=== PATIENT | male | born 1985 | race Two or more races ===

== ENCOUNTER 2018-11-10 09:30 | Outpatient (CLI) | payer OTHER ==
--- NOTE | 2018-11-10 11:44 | Pre-Procedure Note/Attestation ---
Pre-Procedure Note/Attestation Complete Prior to Procedure Planned Procedure: left Procedure Narrative: shoulder arthrogram Indications for Procedure Pre-Operative Diagnosis: shoulder pain Attestation I attest that I discussed the nature of the procedure; its benefits; risks and complications; and alternatives (and the risks and benefits of such alternatives ), prior to the procedure, with the patient (or the patient's legal customer solutions representative). I attest that, if there was a reasonable possibility of needing a blood transfusion, the patient (or the patient's legal customer solutions representative) was given the [facility] standardized written summary, pursuant to the [employer] Blood Safety Act ([place] Health and Safety Code # 1645, as amended). I attest that I re-evaluated the patient just prior to the surgery and that there has been no change in the patient's H&P, except as documented below: Calin Leal MD Nov 10, 2018 11:44
--- NOTE | 2018-11-10 11:56 | Brief Operative Note ---
Immediate Post Operative Note Operative Note Pre-op Diagnosis: shoulder pain Procedure: L shoulder arthrogram Post-op Diagnosis: same as pre-op Findings: consistent w/pre-op dx studies Surgeon: Marta Leal Anesthesia: local Specimen: none Complications: none Condition: stable Fluids: none Implant(s) used?: No Calin Leal MD Nov 10, 2018 11:56
--- NOTE | 2018-11-10 12:05 | Diagnostic Imaging Report ---
Indication: Left shoulder pain, needs gadolinium injection for MRI arthrogram Technique: Informed consent obtained prior to commencement of the procedure. Procedural timeout performed. Sterile prepping and draping. Fluoroscopy used to determine optimal puncture site, using rotator interval approach. Local anesthesia with 1% lidocaine. Under real-time fluoroscopy guidance, 21-gauge spinal needle was advanced to the 10:00 position of the medial humeral head. Small amount of lidocaine injected, confirming easy injection. Small amount of contrast injected, confirming intra-articular position of the needle. Cocktail of dilute gadolinium, lidocaine, and iodinated contrast injected. Some difficulty was encountered and injected contrast, so the needle was repositioned slightly, resulting in easy injection of contrast. This was done under direct fluoroscopic visualization with repeat confirmation of intra-articular position of the needle. After total of 15 mL injected, the needle was withdrawn. The patient tolerated the procedure well, without immediate complication. Total fluoroscopy time 47.4 seconds. Total dose area product [id number] [id number] Number of images: 3 Comparison: none Findings: Intraoperative images confirm intra-articular needle placement Impression: Successful left shoulder injection for subsequent MRI arthrography, as described
== END 2018-11-10 11:30 | disposition home or self-care (01) ==
LOC: MRI 09:30
DX: M25.512 Pain in left shoulder (principal)
CPT/HCPCS: A9585